=== PATIENT | male | born 1975 | race Caucasian/White ===

== ENCOUNTER 2020-06-03 03:49 | Emergency (ER) | payer MEDICARE ==
[~2020-06-03] VITALS: Ht 167.6 cm; Wt 81.6 kg
[2020-06-03 04:39] VITALS: BP 133/88
== END 2020-06-03 05:41 | disposition home or self-care (01) ==
LOC: ER 03:52
DX: Z00.8 Encounter for other general examination (principal); Z59.0 Homelessness

== ENCOUNTER 2020-06-14 09:13 | Emergency (ER) | payer MEDICARE, OTHER ==
[~2020-06-14] VITALS: Ht 180.3 cm; Wt 78.5 kg
--- NOTE | 2020-06-14 09:13 | NUR ---
PT [facility] [address] C/O SI NO SPECIFIC PLAN. PT IS AAOX4, NOT IN RESPIRATORY DISTRESS, V/S STABLE, KEPT RESTED AND COMFORTABLE. WILL CONTINUE TO MONITOR. SITTER AT BEDSIDE.
--- NOTE | 2020-06-14 09:18 | NUR ---
CALLED SECURITY AT BEDSIDE FOR WANDING.
--- NOTE | 2020-06-14 09:20 | NUR ---
SEEN AND EXAMINED BY .
--- NOTE | 2020-06-14 09:27 | NUR ---
ER PHLEB AT BEDSIDE FOR BLOOD DRAW.
[2020-06-14 09:44] LABS: BASOPHILS # (AUTO) 0.1 /CMM (0.0-0.2); BASOPHILS % (AUTO) 1.3 % (0.0-2.0); EOSINOPHILS % (AUTO) 1.4 % (0.0-6.0); HEMATOCRIT 47 % (39-51); HEMOGLOBIN 15.6 g/dL (13.5-17.5); LYMPHOCYTES # (AUTO) 1.5 /CMM (0.8-4.8); LYMPHOCYTES % (AUTO) 25.1 % (20.0-44.0); MEAN CORPUSCULAR HGB CONC 33 g/dl (31.0-36.0); MEAN CORPUSCULAR VOLUME 89 fL (80-96); MONOCYTES # (AUTO) 0.4 /CMM (0.1-1.30); MONOCYTES % (AUTO) 7.4 % (2.0-12.0); NEUTROPHILS # (AUTO) 3.8 /CMM (1.8-8.9); NEUTROPHILS % (AUTO) 64.8 % (43.0-81.0); PLATELET COUNT (AUTO) 326 /CMM (150-450); RED BLOOD CELL COUNT(AUTO) 5.32 MIL/uL (4.5-6.0); WHITE BLOOD COUNT (AUTO) 5.8 K/uL (4.3-11.0)
[2020-06-14 09:52] LABS: BILIRUBIN,URINE Negative (NEGATIVE); COLOR,URINE YELLOW (YELLOW); LEUKOCYTE ESTERASE ,URINE Negative (NEGATIVE); NITRITE, URINE Negative (NEGATIVE); PH,URINE 6.5 (5.0-8.0); PROTEIN,URINE Negative (NEGATIVE); UGLUCOSE Negative (NEGATIVE)
[2020-06-14 09:54] LABS: CALCIUM, SERUM 9.2 mg/dL (8.5-10.1); CARBON DIOXIDE 31 mmol/L (21-32); CHLORIDE 99 mmol/L (98-107); CREATININE 1.1 mg/dL (0.6-1.3); GLUCOSE 104 mg/dL (74-106); POTASSIUM 3.1 mmol/L (3.5-5.1); SODIUM SERUM 138 mmol/L (136-145); UREA NITROGEN, BLOOD 9 mg/dL (7-18)
[2020-06-14 09:59] LABS: ALANINE AMINOTRANSFERASE 34 U/L (12-78); ALBUMIN 3.8 g/dL (3.4-5.0); ALCOHOL, BLOOD < 3 mg/dL (0-0); ALKALINE PHOSPHATASE 92 U/L (46-116); ASPARTATE AMINOTRANSFERASE 28 U/L (15-37); BILIRUBIN,DIRECT 0.1 mg/dL (0.0-0.2); BILIRUBIN,TOTAL 0.4 mg/dL (0.2-1.0); TOTAL PROTEIN, SERUM 8.6 g/dL (6.4-8.2)
[2020-06-14 10:17] LABS: BACTERIA,URINE None seen /HPF (None Seen); RBC,URINE 0-2 /HPF (0-2); SQUAMOUS EPITHELIAL CELL,UR Few /HPF (None Seen)
[2020-06-14 10:18] LABS: ACETAMINOPHEN < 0 ug/ml (10-30)
--- NOTE | 2020-06-14 14:12 | NUR ---
PATIENT ACCEPTED TO [facility] UNDER THE CARE OF DR. CLOUD (PSYCH) AND DR. CASILLAS (MEDICAL) GOING TO UN[address]. NUMBER TO GIVE REPORT: [phone].
--- NOTE | 2020-06-14 14:15 | NUR ---
KENDY SELF 30 MIN. TRIP # [id number].
[2020-06-14] MEDS ORDERED: POTASSIUM CHLORIDE 20 MEQ TAB.PRT.SR PO ONE ×2 (14:23→14:30)
--- NOTE | 2020-06-14 14:26 | NUR ---
REPORT GIVEN TO JADIEL POPE FOR YULY.
--- NOTE | 2020-06-14 14:34 | NUR ---
REPORT GIVEN TO EMT FOR PT TRANSFER TO [facility].
[2020-06-14 14:36] VITALS: BP 121/76
--- NOTE | 2020-06-14 14:40 | NUR ---
PICKED UP BY [facility] IN STABLE CONDITION. CLINICALS PROVIDED TO EMT TO BE GIVEN TO FACILITY. ALL BELONGINGS RETURNED TO PATIENT. PATIENT WILL BE TRANSFERRED TO [facility].
== END 2020-06-14 14:44 ==
LOC: ER 09:16
DX: R45.851 Suicidal ideations (principal); Z59.0 Homelessness; F31.9 Bipolar disorder, unspecified; Z20.822 Contact with and (suspected) exposure to COVID-19
CPT/HCPCS: 36415; 80048-TC; 80076-TC; 81001; 85025-TC; C9803; G0480